=== PATIENT | male | born 1950 | race Caucasian/White ===

== ENCOUNTER → 2016-10-16 | Outpatient (CLI) | payer BC ==
[~2016-10-16] MED LIST: FLEXERIL 1010 MG/TAB PO; PSEUDOEPHEDRINE30 MG PO; ULTRAM 50MG TAB50 MG
== END ==
LOC: BHSO 09:46
DX: F90.0 Attention-deficit hyperactivity disorder, predominantly inattentive type (principal)
CPT/HCPCS: 90791-AI

== ENCOUNTER → 2016-11-15 | Outpatient (CLI) | payer BC | LOC: BHSO 08:49 | DX: F06.32 Mood disorder due to known physiological condition with major depressive-like episode (principal) ==

== ENCOUNTER → 2017-01-17 | Outpatient (CLI) | payer BC | LOC: BHSO 11:30 | DX: F41.0 Panic disorder [episodic paroxysmal anxiety] (principal) ==

== ENCOUNTER → 2017-07-16 | Outpatient (CLI) | payer BC | LOC: BHSO 10:32 | DX: F90.0 Attention-deficit hyperactivity disorder, predominantly inattentive type (principal) | CPT/HCPCS: G0463 ==

== ENCOUNTER → 2018-07-01 | Outpatient (CLI) | payer BC | LOC: BHSO 12:57 | DX: F90.0 Attention-deficit hyperactivity disorder, predominantly inattentive type (principal) | CPT/HCPCS: G0463 ==

== ENCOUNTER → 2019-01-17 | Outpatient (CLI) | payer BC | LOC: BHSO 10:12 | DX: F90.0 Attention-deficit hyperactivity disorder, predominantly inattentive type (principal) | CPT/HCPCS: G0463 ==

== ENCOUNTER → 2019-07-04 | Outpatient (CLI) | payer BC | LOC: BHSO 12:51 | DX: F90.0 Attention-deficit hyperactivity disorder, predominantly inattentive type (principal) | CPT/HCPCS: G0463 ==

== ENCOUNTER → 2019-11-18 | Outpatient (CLI) | payer BC | LOC: BHSO 10:50 | DX: F90.0 Attention-deficit hyperactivity disorder, predominantly inattentive type (principal) | CPT/HCPCS: G0463 ==

== ENCOUNTER 2020-07-15 11:15 | Outpatient (RCR) | payer MEDICARE, BC | END 2020-07-23 08:50 | disposition home or self-care (01) | LOC: WSPT 11:15 | DX: M50.20 Other cervical disc displacement, unspecified cervical region (principal) ==

== ENCOUNTER 2021-09-15 05:05 | Emergency (ER) | payer MEDICARE, BC ==
[~2021-09-15] VITALS: Ht 165.1 cm; Wt 59.1 kg
[2021-09-15 05:08] VITALS: TEMP 97.1
[2021-09-15] MEDS ORDERED: CEPHALEXIN500 M1 PO (05:42)
[2021-09-15 06:16] VITALS: BP 110/72; PULSE 69
== END 2021-09-15 06:16 | disposition home or self-care (01) ==
LOC: COL.ER 05:05
DX: S61.216A Laceration without foreign body of right little finger without damage to nail, initial encounter (principal); S50.312A Abrasion of left elbow, initial encounter; Z23 Encounter for immunization; Z28.310 Unvaccinated for COVID-19; W19.XXXA Unspecified fall, initial encounter

== ENCOUNTER → 2021-09-22 | Outpatient (CLI) | payer MEDICARE, BC ==
[~2021-09-22] MED LIST changes: +CEPHALEXIN500 M1 PO
[2021-09-22 11:38] VITALS: BP 157/79; PULSE 57; TEMP 98.5
== END ==
LOC: COL.ER 11:23
DX: Z48.02 Encounter for removal of sutures (principal); Z28.310 Unvaccinated for COVID-19